=== PATIENT | male | born 1945 | race Two or more races ===

== ENCOUNTER 2024-01-30 10:34 | Outpatient (AMB) | payer OTHER, SELFPAY ==
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
[2024-01-30 11:07] VITALS: BP 140/64; PULSE 56; RESP 14; TEMP 36.6; O2SAT 96; BMI 26.3
[2024-01-30 11:09] VITALS: BP 128/60
== END 2024-01-30 11:50 | disposition home or self-care (01) ==
PROVIDERS: PCP Internal Medicine; Visit Provider Internal Medicine
DX: E11.42 Type 2 diabetes mellitus with diabetic polyneuropathy (principal)
CPT/HCPCS: 99214

== ENCOUNTER 2024-01-30 11:54 | Outpatient (REF) | payer OTHER, SELFPAY ==
[2024-01-30 14:31] LABS: MANUAL DIFF FLAG NO
[2024-01-30 14:40] LABS: Basophils Percent Auto 0.8 % (0-2); Eosinophils Absolute Auto 0.1 X10*3/uL (0.0-0.4); Hematocrit 36.8 % (42.0-52.0); Hemoglobin 12.3 g/dl (14.0-18.0); Imm Gran Abs Auto 0.02 X10*3/uL (0.00-0.03); Imm Gran Pct Auto 0.5 % (0.0-0.4); Mean Corpuscular HGB Conc 33.4 g/dl (31.0-36.0); Mean Corpuscular Hemoglobin 33.8 pg (27.0-33.0); Mean Corpuscular Volume 101.1 fL (80.0-98.0); Monocytes Absolute Auto 0.3 X10*3/uL (0.1-1.2); Monocytes Percent Auto 6.9 % (2-11); Neutrophils Absolute Auto 2.5 x10*3/uL (2.0-8.3); Neutrophils Percent Auto 63.8 % (45-73); Platelet Count 137 X10*3/uL (160-400); Red Blood Count 3.64 X10*6/uL (4.60-5.80); Red Cell Distribution Width 13.9 % (11.0-16.0); White Blood Count 3.9 X10*3/uL (4.8-10.8)
[2024-01-30 14:48] LABS: Estimated Average Glucose 140 mg/dL; Hemoglobin A1C 152.6669 umol/L; Hemoglobin A1c % 6.5 % (<6.0)
== END 2024-01-30 11:55 | disposition home or self-care (01) ==
LOC: HO.WFDLDS 11:54
PROVIDERS: Visit Provider Internal Medicine
DX: E11.9 Type 2 diabetes mellitus without complications (principal)
CPT/HCPCS: 36415; 83036; 85025

== ENCOUNTER 2024-05-03 11:27 | Outpatient (AMB) | payer OTHER, SELFPAY ==
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
[2024-05-03 11:44] VITALS: BP 122/72; PULSE 55; RESP 14; O2SAT 94; BMI 25.0
== END 2024-05-03 12:34 | disposition home or self-care (01) ==
PROVIDERS: PCP Internal Medicine; Visit Provider Internal Medicine
DX: E11.42 Type 2 diabetes mellitus with diabetic polyneuropathy (principal)
CPT/HCPCS: 83036; 99215

== ENCOUNTER 2024-08-09 13:50 | Outpatient (AMB) | payer OTHER, SELFPAY ==
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
[2024-08-09 14:02] VITALS: BP 118/62; PULSE 70; O2SAT 97; BMI 25.8
== END 2024-08-09 16:58 | disposition home or self-care (01) ==
PROVIDERS: PCP Internal Medicine; Visit Provider Internal Medicine
DX: E11.42 Type 2 diabetes mellitus with diabetic polyneuropathy (principal); I10 Essential (primary) hypertension; R76.8 Other specified abnormal immunological findings in serum

== ENCOUNTER → 2024-08-09 13:50 | Outpatient (BNVA) | payer OTHER, SELFPAY | PROVIDERS: PCP Internal Medicine; Visit Provider Internal Medicine ==

== ENCOUNTER 2024-08-09 14:30 | Outpatient (REF) | payer OTHER, SELFPAY ==
[2024-08-09 17:22] LABS: MANUAL DIFF FLAG NO
[2024-08-09 17:27] LABS: Basophils Percent Auto 0.8 % (0-2); Eosinophils Absolute Auto 0.1 X10*3/uL (0.0-0.4); Eosinophils Percent Auto 1.3 % (0-4); Hematocrit 40.4 % (42.0-52.0); Hemoglobin 13.6 g/dl (14.0-18.0); Imm Gran Abs Auto 0.02 X10*3/uL (0.00-0.03); Imm Gran Pct Auto 0.5 % (0.0-0.4); Lymphocytes Percent Auto 26.1 % (20-40); Mean Corpuscular HGB Conc 33.7 g/dl (31.0-36.0); Mean Corpuscular Hemoglobin 33.2 pg (27.0-33.0); Mean Corpuscular Volume 98.5 fL (80.0-98.0); Monocytes Absolute Auto 0.2 X10*3/uL (0.1-1.2); Monocytes Percent Auto 6.3 % (2-11); Neutrophils Absolute Auto 2.5 x10*3/uL (2.0-8.3); Platelet Count 143 X10*3/uL (160-400); Red Cell Distribution Width 13.2 % (11.0-16.0); White Blood Count 3.8 X10*3/uL (4.8-10.8)
[2024-08-09 17:43] LABS: Rheumatoid Factor < 13.0 IU/mL (<15.0)
[2024-08-09 17:54] LABS: Alanine Aminotransferase 49 U/L (0-40); Albumin Level 4.2 g/dL (3.5-5.0); Alkaline Phosphatase 110 U/L (39-117); Anion Gap 8 (12-20); Aspartate Amino Transferase 42 U/L (5-37); Bilirubin Total 0.8 mg/dL (0.0-1.0); Blood Urea Nitrogen 22 mg/dL (9-16); Calcium 9.3 mg/dL (8.4-10.2); Carbon Dioxide 33 mmol/L (22-29); Chloride 99 mmol/L (96-108); Cholesterol 106 mg/dL (<200); Estimated Glomerular Filt Rate 46; Glucose Random 289 mg/dL (60-115); HDL Cholesterol 33 mg/dL (>40); LDL Cholesterol Calculated 41 mg/dL (<100); Sodium 136 mmol/L (135-145); Triglycerides 164 mg/dL (<150)
[2024-08-09 18:06] LABS: TSH reflex Free T4 1.75 uIU/mL (0.32-4.0)
[2024-08-09 18:08] LABS: Erythrocyte Sedimentation Rate 12 MM/HR (0-15)
[2024-08-10 08:21] LABS: Estimated Average Glucose 146 mg/dL; Hemoglobin A1C 171.1588 umol/L; Hemoglobin A1c % 6.7 % (<6.0); Total Hemoglobin (HGBA1C) 3439.2956 umol/L
== END 2024-08-09 14:31 | disposition home or self-care (01) ==
LOC: HO.WFDLDS 14:30
PROVIDERS: Visit Provider Internal Medicine
DX: I10 Essential (primary) hypertension (principal); E11.42 Type 2 diabetes mellitus with diabetic polyneuropathy; N18.30 Chronic kidney disease, stage 3 unspecified; R76.8 Other specified abnormal immunological findings in serum
CPT/HCPCS: 36415; 80053; 80061; 83036; 84443; 85025; 85652; 86431

== ENCOUNTER 2024-09-24 09:40 | Outpatient (AMB) | payer OTHER, SELFPAY ==
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
[2024-09-24 09:47] VITALS: BP 136/84; PULSE 67; O2SAT 96
== END 2024-09-24 11:17 | disposition home or self-care (01) ==
PROVIDERS: PCP Internal Medicine; Visit Provider Internal Medicine
DX: C44.90 Unspecified malignant neoplasm of skin, unspecified (principal)

== ENCOUNTER → 2024-09-24 09:40 | Outpatient (BNVA) | payer OTHER, SELFPAY | PROVIDERS: PCP Internal Medicine; Visit Provider Internal Medicine ==

== ENCOUNTER 2024-11-17 13:02 | Outpatient (AMB) | payer OTHER, SELFPAY ==
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
[2024-11-17 13:11] VITALS: BP 136/72; PULSE 66; RESP 16; O2SAT 98
--- OUTSIDE RECORDS SUMMARY | 2024-11-17 15:29 | XMS_ITS | Clinical Summary ---
Author Organization [facility] Address [address] [place] [address] Care Team Providers Care Lead Electrical Controls Engineer Name Role Phone Sanaz Raymond PA-C Primary Care Provider Allergies No known active allergies Medications Medication Sig Dispensed Refills Start Date End Date Status metoprolol tartrate (LOPRESSOR) 25 MG tablet Take by mouth 2 (two) times a day. 0 Active glipiZIDE (GLUCOTROL) tablet 5 mg Take 1 tablet (5 mg total) by mouth 2 (two) times a day before breakfast and dinner. 0 Active allopurinol (ZYLOPRIM) 100 MG tablet Take 1 tablet (100 mg total) by mouth daily. 0 Active buPROPion (WELLBUTRIN XL) 150 MG 24 hr tablet Take 1 tablet (150 mg total) by mouth daily. 0 Active Active Problems No known active problems Social History Tobacco Use Types Packs/Day Years Used Date Smoking Tobacco: Never Smokeless Tobacco: Never Tobacco Cessation:Counseling Given: Not Answered Alcohol Use Standard Drinks/Week Comments Not Currently 0 (1 standard drink = 0.6 oz pur e alcohol) Sex and Gender Information Value Date Recorded Sex Assigned at Male 06/11/2023 1:18 PM EDT Gender Identity Not on file Sexual Orientation Not on file Job Start Date Occupation Industry Not on file Not on file Not on file Last Filed Vital Signs Vital Sign Reading Time Taken Comments Blood Pressure 144/82 08/14/2023 2:01 PM EST Pulse 66 08/14/2023 2:01 PM EST Temperature 37.1 ??C (98.8 ??F) 08/14/2023 2:01 PM ES T Respiratory Rate - - Oxygen Saturation 98% 08/14/2023 2:01 PM EST Inhaled Oxygen Concentration - - Weight 73.9 kg (163 lb) 08/14/2023 2:01 PM EST Height - - Body Mass Index - - Plan of Treatment Health Maintenance Due Date Last Done Comments Hepatitis C Screening 1945 COVID-19 Vaccine (#1) 1945 Depression Screening 1959 Preventative Health Evaluation 1965 Shingrix-Zoster Vaccine (1 of 2) 1997 Fall Risk Assessment 2012 RSV Adult > 60+ Yrs or (1 - 1-dose 75+ series) 2022 Influenza Vaccine (#1) 2024 2, 07/06/2021, 05/29/2020, Additional history exists DTap / Tdap / Td (3 - Td or Tdap) 11/22/2025 11/23/2015, 10/14/2011, 07/29/2007 Pneumococcal Vaccine Completed 11/17/2014, 08/31/2012, 07/29/2007 Hepatitis B Vaccines Aged Out No long er eligible based on patient's age to complete this topic RSV Ped < 20 months Aged Out No longe r eligible based on patient's age to complete this topic Care Teams Lead Electrical Controls Engineer Relationship Specialty Start Date End Date Sanaz Raymond PA-C PCP - General Medical Services 06/11/23
== END 2024-11-17 13:42 | disposition home or self-care (01) ==
LOC: HO.HMCFM 13:03
PROVIDERS: PCP Internal Medicine; Visit Provider Physician Assistant
DX: E11.42 Type 2 diabetes mellitus with diabetic polyneuropathy (principal)

== ENCOUNTER → 2024-11-17 13:02 | Outpatient (BNVA) | payer OTHER, SELFPAY | PROVIDERS: PCP Internal Medicine; Visit Provider Physician Assistant | DX: E11.42 Type 2 diabetes mellitus with diabetic polyneuropathy (principal); I12.9 Hypertensive chronic kidney disease with stage 1 through stage 4 chronic kidney disease, or unspecified chronic kidney disease; E11.22 Type 2 diabetes mellitus with diabetic chronic kidney disease; N18.9 Chronic kidney disease, unspecified | CPT/HCPCS: 83036 ==

== ENCOUNTER 2025-02-15 11:31 | Outpatient (AMB) | payer OTHER, SELFPAY ==
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
[2025-02-15 11:43] VITALS: BP 183/89; PULSE 63; RESP 12; TEMP 37; O2SAT 97; BMI 25.6
[2025-02-15 11:52] VITALS: BP 182/86
--- OUTSIDE RECORDS SUMMARY | 2025-02-15 13:13 | XMS_ITS | Clinical Summary ---
Author Organization [facility] Address [address] [place] [address] Care Team Providers Care Retail Service Specialist Name Role Phone Sanaz Raymond PA-C Primary [...] 66 08/14/2023 2:01 PM EST Temperature 37.1 C (98.8 F) 08/14/2023 2:01 PM EST Respiratory Rate - - Oxygen Saturation 98% [...] - 1-dose 75+ series) 2022 Influenza Vaccine (Season Ended) 2025 06/19/2022, 07/06/2021, 05/29/2020, Additional history exists DTap / Tdap / Td (3 - Td or Tdap) 11/22/2025 11/23/2015, 10/14/2011, 07/29/2007 Pneumococcal Vaccine Completed 11/17/2014, 08/31/2012, 07/29/2007 Hepatitis B Vaccines Aged Out No long er eligible based on patient's age to complete this topic RSV Ped < 20 months Aged Out No longe r eligible based on patient's age to complete this topic Care Teams Retail Service Specialist Relationship Specialty Start Date End Date Sanaz Raymond PA-C PCP - General Medical Services 06/11/23
== END 2025-02-15 15:56 | disposition home or self-care (01) ==
LOC: HO.HMCFM 11:32
PROVIDERS: PCP Internal Medicine; Visit Provider Internal Medicine
DX: E11.42 Type 2 diabetes mellitus with diabetic polyneuropathy (principal); I10 Essential (primary) hypertension; N18.30 Chronic kidney disease, stage 3 unspecified

== ENCOUNTER 2025-05-23 13:35 | Outpatient (AMB) | payer OTHER, SELFPAY ==
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
[2025-05-23 14:03] VITALS: BP 126/66; PULSE 66; RESP 14; O2SAT 97; BMI 26.5
--- OUTSIDE RECORDS SUMMARY | 2025-05-23 15:11 | XMS_ITS | Clinical Summary ---
Author Organization [facility] Address [address] [place] [address] Care Team Providers Care Ribbon Cutter Name Role Phone Sanaz Raymond PA-C Primary [...] 1-dose 75+ series) 2022 Influenza Vaccine (#1) 2025 2, 07/06/2021, 05/29/2020, Additional history exists DTap [...] age to complete this topic Care Teams Ribbon Cutter Relationship Specialty Start Date End Date Sanaz Raymond PA-C PCP - General Medical Services 06/11/23
== END 2025-05-23 14:17 | disposition home or self-care (01) ==
LOC: HO.HMCFM 13:36
PROVIDERS: PCP Internal Medicine; Visit Provider Internal Medicine
DX: E11.42 Type 2 diabetes mellitus with diabetic polyneuropathy (principal); N18.30 Chronic kidney disease, stage 3 unspecified; M06.9 Rheumatoid arthritis, unspecified

== ENCOUNTER → 2025-05-23 13:35 | Outpatient (BNVA) | payer OTHER, SELFPAY | PROVIDERS: PCP Internal Medicine; Visit Provider Internal Medicine | DX: Z23 Encounter for immunization (principal) | CPT/HCPCS: 90471; 90656 ==